=== PATIENT | female | born 1990 | race Caucasian/White ===

== ENCOUNTER 2016-11-25 06:23 | Day surgery (SDC) | payer OTHER ==
[~2016-11-25] VITALS: Ht 154.9 cm; Wt 96.6 kg
[~2016-11-25 06:23] MED LIST: 5-HTP100 MG PO; CELEXA40 M1 PO; HYDROXYZ HCL10 MG PO; IRON325 M1 PO; PROAIR HFA108 MCG/AC IN
[2016-11-25] MEDS ORDERED: LORTAB 7.57.5 MG PO ×2 (09:38→09:39)
[2016-11-25 13:48] VITALS: BP 128/64
== END 2016-11-25 13:45 | disposition home or self-care (01) | DRG 742 ==
LOC: ORM 06:23
PROVIDERS: ATTEND Obstetrics & Gynecology
PROC: 0U5B8ZZ Destruction of Endometrium, Via Natural or Artificial Opening Endoscopic (ICD-10-PCS; principal; 2016-11-25)
PROC: 0UL74CZ Occlusion of Bilateral Fallopian Tubes with Extraluminal Device, Percutaneous Endoscopic Approach (ICD-10-PCS; 2016-11-25)
DX: N92.1 Excessive and frequent menstruation with irregular cycle (principal); Z68.41 Body mass index [BMI] 40.0-44.9, adult; N94.6 Dysmenorrhea, unspecified; Z30.2 Encounter for sterilization; R10.2 Pelvic and perineal pain; F32.9 Major depressive disorder, single episode, unspecified; F17.210 Nicotine dependence, cigarettes, uncomplicated; F12.90 Cannabis use, unspecified, uncomplicated; E66.9 Obesity, unspecified
CPT/HCPCS: J2710